=== PATIENT | female | born 1995 | race Caucasian/White ===

== ENCOUNTER → 2016-11-22 | Outpatient (CLI) | payer BC | LOC: LAB 03:52 | PROVIDERS: Nurse Practitioner | DX: N83.291 Other ovarian cyst, right side (principal) ==

== ENCOUNTER 2017-01-26 23:04 | Emergency (ER) | payer BC ==
[~2017-01-26] VITALS: Ht 167.6 cm; Wt 50.8 kg
[2017-01-26] MEDS ORDERED: ORTHO-TABS1 EACH PO (23:21)
[2017-01-26 23:59] LABS: BASO % 0.5 % (0.0-1.0); EOS # 0.2 10*3/uL (0.0-0.4); EOS % 4.2 % (1.0-4.0); HEMATOCRIT 37.1 % (37.0-47.0); HEMOGLOBIN 12.3 g/dl (12.0-16.0); LYMPH # 2.4 10*3/uL (1.3-4.4); MEAN CELL VOLUME 93.9 fl (81.0-99.0); MEAN CORPUSCULAR HGB 31.1 pg (27.0-31.0); MEAN CORPUSCULAR HGB CONC 33.2 g/dl (33.0-37.0); MEAN PLATELET VOLUME 9.4 fl (9.6-12.3); MONO # 0.4 10*3/uL (0.1-1.0); NEUT # 2.6 10*3/uL (2.3-7.9); NEUT % 45.8 % (47.0-73.0); PLATELET COUNT AUTOMATED 261 10*3/uL (130-400); RED BLOOD COUNT 3.95 10*6/uL (4.10-5.10); RED CELL DISTRI WIDTH 11.3 % (0-14.5); WHITE BLOOD COUNT 5.7 10*3/uL (4.8-10.8)
[2017-01-27 00:14] LABS: ALBUMIN 3.3 gm/dl (3.1-4.5); ALKALINE PHOSPHATASE 59 U/L (45-117); BILIRUBIN, TOTAL 0.1 mg/dl (0.2-1.0); BUN 14 mg/dl (7-24); CARBON DIOXIDE 26 mmol/L (21-32); CHLORIDE 110 mmol/L (98-107); EST GLOM FILT AFRICAN AMERICAN > 60 ml/min; GLUCOSE 106 mg/dL (65-99); SGOT/AST 19 IU/L (3-35); SGPT/ALT 16 U/L (12-78); SODIUM 141 mmol/L (136-145); TOTAL PROTEIN 6.8 gm/dL (6.4-8.2)
[2017-01-27 00:16] LABS: TROPONIN I < 0.015 ng/ml (<0.045)
[2017-01-27] MEDS ORDERED: KETOROLAC10 MG PO (00:28)
[2017-01-27] MEDS ORDERED: PEPCID20 MG PO (00:29)
== END 2017-01-27 00:51 | disposition home or self-care (01) ==
LOC: ED 23:04
PROVIDERS: Emergency Medicine Emergency Medical Services
DX: M94.0 Chondrocostal junction syndrome [Tietze] (principal)

== ENCOUNTER 2017-04-14 10:53 | Emergency (ER) | payer BC ==
[~2017-04-14] VITALS: Ht 167.6 cm; Wt 52.2 kg
[~2017-04-14 10:53] MED LIST: KETOROLAC10 MG PO; ORTHO-TABS1 EACH PO; PEPCID20 MG PO
[2017-04-14] MEDS ORDERED: NAPROSYN500 MG PO (12:35)
[2017-04-14] MEDS ORDERED: TESSALON PERLE100 MG PO (12:36)
== END 2017-04-14 13:29 | disposition home or self-care (01) ==
LOC: ED 10:53
DX: J06.9 Acute upper respiratory infection, unspecified (principal); B97.89 Other viral agents as the cause of diseases classified elsewhere

== ENCOUNTER 2018-06-03 19:50 | Emergency (ER) | payer BC ==
[~2018-06-03] VITALS: Ht 167.6 cm; Wt 54.4 kg
[~2018-06-03 19:50] MED LIST changes: +NAPROSYN500 MG PO; +TESSALON PERLE100 MG PO
[2018-06-03 20:54] LABS: BILIRUBIN 1+ (NEGATIVE); BLOOD 2+ (NEGATIVE); CLARITY CLEAR (CLEAR); COLOR YELLOW (YELLOW); GLUCOSE NEGATIVE (NEGATIVE); KETONE 2+ (NEGATIVE); LEUKO ESTERASE NEGATIVE (NEGATIVE); NITRITE NEGATIVE (NEGATIVE)
[2018-06-03 21:05] LABS: BACTERIA 1+; EPITHELIAL CELLS 21-30; MUCOUS 1+
[2018-06-03] MEDS ORDERED: PROAIR HFA8.5 GM INH (22:41)
[2018-06-03] MEDS ORDERED: ALLEGRA-D 24 H1 EACH PO (22:41)
== END 2018-06-03 23:39 | disposition home or self-care (01) ==
LOC: ED 19:50
PROVIDERS: Physician Assistant
DX: B34.9 Viral infection, unspecified (principal); H92.03 Otalgia, bilateral; J02.9 Acute pharyngitis, unspecified; F17.200 Nicotine dependence, unspecified, uncomplicated; Z87.891 Personal history of nicotine dependence

== ENCOUNTER 2020-12-18 17:05 | Emergency (ER) | payer OTHER ==
[~2020-12-18] VITALS: Ht 167.6 cm; Wt 59.0 kg
[~2020-12-18 17:05] MED LIST changes: +ALLEGRA-D 24 H1 EACH PO; +PROAIR HFA8.5 GM INH
== END 2020-12-18 18:45 | disposition left against medical advice (07) ==
LOC: ED 17:05
DX: R51.9 Headache, unspecified (principal); M54.2 Cervicalgia; R42 Dizziness and giddiness; Z53.21 Procedure and treatment not carried out due to patient leaving prior to being seen by health care provider; V43.62XA Car passenger injured in collision with other type car in traffic accident, initial encounter; Y93.89 Activity, other specified; Y92.488 Other paved roadways as the place of occurrence of the external cause; Y99.8 Other external cause status